=== PATIENT | male | born 1945 | race Caucasian/White ===

== ENCOUNTER 2024-04-11 14:54 | Inpatient (IN) | payer MEDICARE, OTHER, SELFPAY ==
[2024-04-11] VITALS (18 sets, daily range): BP systolic 128–207; BP diastolic 72–104; BMI 34.5
--- NOTE | 2024-04-11 12:51 | ED.GENMED ---
History of Present Illness
General
Chief Complaint: Chest Problem
Time Seen by Provider: 04/11/24 12:43
History of Present Illness
History of Present Illness:
HPI: Patient has multiple complaints:
1. High blood pressure with pressures that were noted to be high at [facility] 2 days ago, high blood pressure readings in the 160s to 180s at home; he last took lisinopril 10 mg/hydrochlorothiazide 12.5 mg last night
2. Left shoulder pain that is resolved which is nontraumatic�this occurred when the patient had his arm up on the [place] watching game last night
3. Family history of Brugada syndrome which patient was somewhat concerned about
4. Facial flushing and facial warmth last evening
5. Intermittently recurring indigestion and has had esophageal dilatation in the past
EXAM:
GENERAL: Well appearing in no distress, manual blood pressure is 190/100
HEENT: Moist oral mucosa
CARDIOVASCULAR: No murmurs, normal heart rate, regular rhythm, No chest wall tenderness
PULMONARY: No respiratory distress, breath sounds are clear and equal
ABDOMEN: Soft with no peritoneal signs, no tenderness
NEUROLOGIC: Excellent strength all extremities, no coordination deficits
PSYCHIATRIC: Appropriate mental status, normal insight and judgement
EXTREMITIES: Nontender, no edema, moves all extremities equally
SKIN: No rash, no lesions
TIME OF INITIAL ENCOUNTER: 1 PM
NUMBER AND COMPLEXITY OF PROBLEMS ADDRESSED AT THE ENCOUNTER
� Chronic conditions affecting care: High blood pressure
� Acute Exacerbation and/or Progression of Chronic Illness: This is an acute worsening of chronic high blood pressure
� Differential Diagnosis includes: Labile hypertension, poorly controlled high blood pressure, ACS very unlikely
AMOUNT AND/OR COMPLEXITY OF DATA TO BE REVIEWED AND ANALYZED
� I performed an independent evaluation of and my interpretation is:
EKG: Sinus 73, left axis deviation, PACs, LAFB with no old to compare
CT:
X-rays:
Laboratory Studies: White count 15.4, chemistries unremarkable, troponin 0.192
Other:
� Review of other/old records: The patient was seen here in the ED in 2021 with COVID-19; no old EKGs to compare
� Clinical information was obtained by an independent historian: None needed
� Prescriptions/Medications Considered but not given:
� Further testing considered but not performed: Consider chest x-ray given the leukocytosis however the patient has no pneumonia symptoms as well as clear lung sounds
RISK OF COMPLICATIONS AND/OR MORBIDITY OR MORTALITY OF PATIENT MANAGEMENT
� Social determinants of health affecting care: Lives at home
� Discussion with other providers: Hospitalist for admission at 2:25 PM; I notified Dr. Singh of the patient's findings
� Escalation of care including admission/observation vs risk of discharge considered: The patient's blood pressure on my manual reading was 190/100. Will give a dose of hydralazine. He last took lisinopril 10
mg/hydrochlorothiazide 12.5 mg last evening. He also takes vitamins but denies taking any niacin. The patient's troponin is elevated 0.192 with no old to compare. He does not have a rn gyn. He currently has no symptoms on reevaluation
however I am concerned about the troponin elevation as he did have some vague left shoulder discomfort last night and his blood pressures have been elevated more recently.
Past History
Past History
ED Past Medical History: HTN
ED Past Surgical History: None
Social History
Tobacco: Non-smoker
Alcohol: Occasional
Drug: None
Personal:
Living: with family
Phy Exam
Physical Exam
Physical Exam:
see hpi
Course
Orders/Labs/Results
Orders:
Orders
04/11/24 12:26
EKG [Electrocardiogram (*1)] Urgent
Reason for Study: Hypertension, Benign
EKG- Treatment ONCE
04/11/24 13:09
HydrALAZINE [Apresoline] 10 mg IV NOW STA
04/11/24 13:16
Basic Metabolic Panel Urgent
Complete Blood Count/With Diff Urgent
Troponin I Urgent
04/11/24 14:45
Admit/Transfer Patient As Directed
Co-Sign Provider:
Level of Care: Inpatient admission
Assign to:: IVU
Physician / Group: Hospitalist
Diagnosis: Chest pain
Reason for Hospitalization: .
Expected length of stay greater than two midnights?: Yes
ELOS- Estimated Length of Stay in days: 3
I certify the patient meets the requirements for IP care: Yes
PRN Pain Medication Management As Directed
May give lesser potent ordered pain med per pt: Yes
preference::
Protocol:: Medication orders for pain may be administered in a
manner that supports deferring to patient preference
when the pt is:
- Requesting an ordered lesser potent pain medication.
Least to most potent pain medications are defined
as: acetaminophen < NSAID < tramadol < opioids
(morphine, oxycodone, hydromorphone).
- Requesting a lesser dose of the same medication IF
ORDERED.
- Requesting a less intrusive route of administration
if both routes are prescribed by the provider (PO <
IV).
04/11/24 16:15
Troponin I Urgent
Abnormal Lab Results
04/11/24
13:16
WBC 15.4 H 10^3/uL
(4.8-10.8)
RBC 4.54 L 10^6/uL
(4.70-6.10)
MCH 32.6 H pg
(27.0-31.0)
Abs Immat Gran (auto) 0.2 H 10^3/uL
(0-0.05)
Absolute Neuts (auto) 12.7 H 10^3/uL
(1.4-6.5)
Absolute Monos (auto) 0.9 H 10^3/uL
(0.1-0.6)
Immature Gran % 1.1 H %
(0-0.5)
Neutrophils % 82.9 H %
(42.2-75.2)
Lymphocytes % 9.9 L %
(20.5-51.1)
BUN 21 H mg/dl
(9-20)
Troponin I 0.192 H* ng/ml
04/11/24 13:16
04/11/24 13:16
Vital Signs
Blood pressure: 190/100 (manual)
Initial and Last Documented VS:
Initial Vital Signs
Temp Pulse Resp BP Pulse Ox
98.3 F 78 18 179/100 100
04/11/24 12:24 04/11/24 12:24 04/11/24 12:24 04/11/24 12:24 04/11/24 12:24
Last Documented Vital Signs
Temp Pulse Resp BP Pulse Ox
98.3 F 70 13 176/99 100
04/11/24 12:24 04/11/24 15:15 04/11/24 15:15 04/11/24 15:00 04/11/24 12:24
*Critical Care Note
Total Time (30-74mins, 75-104mins- exclusive of procedures): Not Applicable
ED Attending Note
-
Portions of this chart may have been created with voice recognition software.� Occasional wrong word or��sound alike� substitutions may have occurred due to the inherent limitations of voice recognition software.
Discharge Plan
Departure
Patient Disposition: Admit
Date of Disposition: 04/11/24
Time of Disposition: 14:26
Presentation/result/management discussed w/ accepting MD/DO: Hospitalist
Discharge Problem:
Elevated troponin level
Interventions
Interventions:
*Risk Screen - Suicide Last Done: 04/11/24 13:30
*Neglect/Abuse Screening Last Done: 04/11/24 13:30
ED- Fall Risk Assessment Last Done: 04/11/24 13:29
ED- Cardiac Assessment Last Done: 04/11/24 13:29
ED- Pulmonary Assessment Last Done: 04/11/24 13:29
[2024-04-11] MEDS: APRESOLINE 10 MG IV (13:20)
[2024-04-11 13:29] LABS: % Basophils 0.1 % (0-2); % Eosinophils 0.1 % (0-6); % Immature Granulocytes 1.1 % (0-0.5); % Lymphocytes 9.9 % (20.5-51.1); % Monocytes 5.9 % (1.7-9.3); % Neutrophils 82.9 % (42.2-75.2); Absolute Immature Granulocytes 0.2 10^3/uL (0-0.05); Absolute Lymphocytes 1.5 10^3/uL (1.2-3.4); Absolute Monocytes 0.9 10^3/uL (0.1-0.6); Absolute Neutrophils 12.7 10^3/uL (1.4-6.5); Hematocrit 42.2 % (39.0-52.0); Hemoglobin 14.8 g/dL (13.0-18.0); Mean Corp Hgb Conc. 35.1 g/dL (33.0-37.0); Mean Corpuscular Hgb 32.6 pg (27.0-31.0); Mean Platelet Volume 9.4 fL (7.4-10.4); Nucleated Red Blood Cells % 0 % (-); Platelet Count 172 10^3/uL (130-400); Red Blood Cell Count 4.54 10^6/uL (4.70-6.10); Red Cell Dist. Width 13.3 % (11.5-14.5); White Blood Cell Count 15.4 10^3/uL (4.8-10.8)
[2024-04-11 13:46] LABS: Blood Urea Nitrogen 21 mg/dl (9-20); Calcium 9.3 mg/dl (8.4-10.2); Carbon Dioxide 24 mmol/L (22-30); Chloride 106 mmol/L (98-107); Glucose 93 mg/dl (70-99); Potassium 4.2 mmol/L (3.5-5.1); Sodium 142 mmol/L (135-145); eGFR > 60.00
[2024-04-11 14:01] LABS: Troponin I 0.192 ng/ml
--- NOTE | 2024-04-11 14:43 | HPS.HSE ---
Family Physician
-
Family Physician: Zeke Gupta
Chief Complaint
-
Uncontrolled hypertension
Left shoulder pain
History of Present Illness
This is 79 years old male presented with history of left shoulder pain that is resolved which is nontraumatic�this occurred when the patient had his arm up on the sofa watching game last night and also uncontrolled hypertension. His son brought him
to the hospital. Patient denied current chest pain, fever, sob. In ER, he was found to have troponin of 0.192. He was given Hydralazine for high blood pressure.
Medical History
Past Medical History
Past Medical History: Reports Other (HTN, back pain, GERD )
Past Surgical History: Reports Other (no recent major surgery )
Social History
Tobacco: Non-smoker
Alcohol: None
Drug: None
Personal:
Living: With Family
Employment: Retired
Family History
Family History: Other (CHF in his father )
Allergies / Home Medications
Allergies reflects when Allergies were last updated in [facility].
Home Medications with original date entered in [facility]
Allergy/Medication List:
Allergies
Allergy/AdvReac Type Severity Reaction Status Date / Time
amoxicillin Allergy Mild Rash Verified 11/25/21 09:33
Home Medications
lisinopril 10 mg-hydrochlorothiazide 12.5 mg tablet 1 tab PO QPM Blood Pressure 11/23/21
aspirin 81 mg tablet,delayed release 81 mg PO DAILYPRN PRN chest pains 04/11/24
coQ10 (ubiquinol) 100 mg capsule 100 mg PO DAILY Supplement 04/11/24
esomeprazole magnesium 40 mg capsule,delayed release (Nexium) 40 mg PO DAILY Gastrointestinal Issue 04/11/24
naproxen sodium 220 mg tablet (Aleve) 220 mg PO [id number] PRN mild pain 04/11/24
Review of Systems
-
History Source: Patient
A 12 point ROS was completed and negative except as noted: Yes
Constitutional: Denies Fever or Chills
EENT: Denies Sore Throat
Respiratory: Denies Cough
Cardiac: Denies Chest Pain
Abdomen/GI: Denies Abdominal Pain
: Denies Dysuria or Frequency
Musculoskeletal: Denies Joint Pain
Skin: Denies Itching
Neurological: Denies Numbness
Endocrine: Denies Temp Intolerance
Hematologic/Lymphatic: Denies Bruising
Psych: Denies Panic Disorder
Physical Exam
Vital Signs
Vital Signs
Temp Pulse Resp BP Pulse Ox
98.3 F 67 12 163/84 100
04/11/24 12:24 04/11/24 14:00 04/11/24 14:00 04/11/24 14:00 04/11/24 12:24
Physical Exam
General: No Apparent Distress and Comfortable
HEENT: Moist mucous membranes and Atraumatic
Respiratory: Clear
Cardiac: S1/S2, Regular Rhythm and Murmur
GI: Soft and Non Tender
Genito-urinary: No costovertebral tender
Musculoskeletal: No Clubbing, No Cyanosis and No Edema
Skin: Warm; No Jaundice
Neuro: AO x 3 and Nonfocal/grossly intact; No Slurred Speech or Tremors
Psych: Calm and Intact Judgment/Insight
Laboratory Results
-
04/11/24 13:16
04/11/24 13:16
Laboratory Results
Troponin I 0.192 ng/ml H* 04/11/24 13:16
Impression/Plan
-
79 years old male presented with uncontrolled hypertension and a brief episode of left upper chest/left shoulder discomfort with flushing
# Positive troponin, history of uncontrolled hypertension and brief episode of left upper chest/left shoulder discomfort with the flushing that happened last night while watching TV, hx of reflux
This story is not entirely conclusive for acute coronary syndrome. Patient has positive troponin ( only one resulted ) which can be also explained by uncontrolled hypertension.
Currently patient has no active chest pain. His systolic blood pressure high was around 190 upon admission.
Family history of heart disease, his father had congestive heart failure
We do not have previous EKG to compare but EKG on admission showed sinus rhythm with left anterior fascicular block(confirmed by cardiology).
Will admit the patient to IVU/telemetry floor
Order echocardiogram
Order serial troponin
Order chest x-ray
The patient will benefit from nitrate, Imdur
Aspirin as antiplatelet therapy
Check lipid panel
Control blood pressure
Appreciate cardiology input
# GERD
Takes Nexium in the past
# Hypertensive urgency
Patient received epidural steroid injection few days ago that might be contributing
Will continue with lisinopril and titrate the dose as needed
# Leukocytosis, likely reactive
No fevers. No respiratory symptoms
# DVT prophylaxis
# Chronic back pain, status post epidural injection
Total time spent to see the patient, examine the patient on the floor, review data and lab results, and discuss the treatment plan with the patient, ED doctor, redeye gunner and nursing staff around 75 minutes
--- NOTE | 2024-04-11 15:57 | CON.CAR ---
Addendum entered and electronically signed by Kiran Singh MD 04/11/24 17:40:
I saw and examined the patient.
The CHEMICAL LABORATORY ASSISTANT's note was reviewed and I agree with the note.
Echocardiogram with normal left ventricular function, moderate aortic stenosis with a peak gradient of 45 mm and a mean gradient of 28 mmHg. Moderate mitral regurgitation.
Original Note:
Consultation
Consultation Request
Date/Time Consultation Requested: 04/11/2024 at 15004/11/24 at 1500
Requesting Provider: Dr. Marte
Performing Provider: Dr. Singh
Reason for Consultation: Abnormal troponin
Medical History
-
History of Present Illness:
79-year-old male with a history of hypertension and GERD who presented to the ER due to issues with hypertension in addition he had 30-minute episode of shoulder discomfort last night. Patient has no prior cardiac history. He states that he was
having issues with back pain and also with some pain down his legs. He underwent epidural injection 2 days ago which improved the symptoms. Last night he was watching football and had his left arm raised and propped on something and he had some
shoulder discomfort that was also noted in his left upper chest. He thought it was related to the positioning symptoms did not particular get better or worse with change in position overall symptoms lasted for about 30 minutes and resolved. He
took evening medications and shortly after swallowing them felt some reflux and then vomited the pills he had no other GI symptoms following this. No shortness of breath palpitations or heart racing. Of note patient was hypertensive last night
with at least 1 recording of 200/100. Of note because of the procedure he had held his lisinopril and then did not take it until late last night. Today he was still hypertensive and had blood pressure recordings anywhere from a systolic of 1 65-1
87. Son recommended that he goes to the ER to evaluate the above issues. Currently without chest pain or shoulder pain ECG without ischemic changes.
Patient states that he has had a murmur in childhood he has not seen a principal quality engineer it sounds as if he had an echocardiogram before but is not clear on what the echocardiogram showed he is not aware of any heart valve problems
He has a family history of Brugada. Reportedly his daughter has Brugada.
Past medical history
Hypertension
GERD
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
Family history. Daughter with Brugada
Social History
Tobacco: Non-Smoker
Family History
Family History: Other (Daughter with Brugada)
Allergies / Home Medications
Allergy/AdvReac Type Severity Reaction Status Date / Time
amoxicillin Allergy Mild Rash Verified 11/25/21 09:33
�Medication �Instructions �Recorded �Confirmed �Type
lisinopril 10 1 tab PO QPM Blood Pressure 11/23/21 04/11/24 History
mg-hydrochlorothiazide 12.5 mg
tablet
aspirin 81 mg tablet,delayed 81 mg PO DAILYPRN PRN chest pains 04/11/24 04/11/24 History
release
coQ10 (ubiquinol) 100 mg capsule 100 mg PO DAILY Supplement 04/11/24 04/11/24 History
esomeprazole magnesium 40 mg 40 mg PO DAILY Gastrointestinal 04/11/24 04/11/24 History
capsule,delayed release (Nexium) Issue
naproxen sodium 220 mg tablet 220 mg PO [id number] PRN mild pain 04/11/24 04/11/24 History
(Aleve)
Review of Systems
-
All other systems: Negative unless noted
Physical Exam
Vital Signs
Temp Pulse Resp BP Pulse Ox
98.3 F 70 13 176/99 100
04/11/24 12:24 04/11/24 15:15 04/11/24 15:15 04/11/24 15:00 04/11/24 12:24
Lab Results
04/11/24 13:16
04/11/24 13:16
Troponin I 0.192 ng/ml H* 04/11/24 13:16
Physical Exam
General: Well Developed, Well Nourished and No Apparent Distress
HEENT: Normocephalic and Moist Mucous Membranes
Respiratory: Clear
Cardiac: Regular Rhythm (2/6 systolic murmur heard through the precordium.)
GI: Soft and Non Tender
Musculoskeletal: No Clubbing and No Cyanosis
Skin: Warm and Dry
Neuro: Awake and Alert
Hematologic/Lymphatic: No Lymphadenopathy
Psych: Calm
Impression / Plan
-
Abnormal troponin.
-Initial troponin 0.19. Exact etiology unclear. With elevation in troponin and 30 minutes of shoulder discomfort last night it is possible that his shoulder discomfort represented angina.. Severe hypertension also may contribute to elevation in
troponin. Patient currently chest pain-free and no ischemic ECG changes would proceed as follows
-Aspirin 81 mg a day
-Serial troponins with next troponin at 1615 as scheduled
-Additional treatment of hypertension
-Echocardiogram
.
Hypertension. Severe
-Continue lisinopril
-Add beta-addie
-Nitrates
-And can continue as needed hydralazine which had also already been administered in the ER
.
Murmur. Assessment with echo.
.
Back pain. Patient with recent epidural.
Data Reviewed
-
EKG: Report Reviewed by me
CT Scan: Report Reviewed by me
Medical Tests (Nuc Med, Echo etc): Report Reviewed by me
[2024-04-11] MEDS: TOPROL XL 25 MG PO (17:45)
[2024-04-11] MEDS: IMDUR (EXTENDED RELEASE) 30 MG PO (17:46)
--- NOTE | 2024-04-11 18:11 | PTCARENOTE ---
Received patient from ED with son in room. Pt is SR w BBB on the monitor, patient reports no chest pain at this time. BP is 184/92 at this time. 98% on room air. Pt oriented to room, call ruvalcaba within reach.
[2024-04-11] MEDS: ZESTRIL 10 MG PO (19:27)
[2024-04-11] MEDS: HEPARIN 5000 UNITS SC (19:28)
[2024-04-11 19:40] LABS: Troponin I 0.163 ng/ml
--- NOTE | 2024-04-11 20:27 | PTCARENOTE ---
Pt. received at change of shift. Pt. seen and assessed in room. Pt. AOx3 with no complaints of pain at this time. Troponins trending down. BP elevated 160s/100. 8pm lisinopril given. Plan of care explained to patient. Pt. verbalizes understanding.
Call ruvalcaba within reach. Continuing to monitor at this time.
--- NOTE | 2024-04-11 21:34 | PTCARENOTE ---
Pt. transported to Xray via tech for chest xray. No complications. Pt. transported back to room.
[2024-04-12] VITALS (9 sets, daily range): BP systolic 114–163; BP diastolic 71–86; BMI 34.3
[2024-04-12 03:10] LABS: Hematocrit 38.3 % (39.0-52.0); Hemoglobin 13.7 g/dL (13.0-18.0); Mean Corp Hgb Conc. 35.8 g/dL (33.0-37.0); Mean Corpuscular Hgb 31.9 pg (27.0-31.0); Mean Corpuscular Volume 89.3 fL (80.0-94.0); Mean Platelet Volume 9.5 fL (7.4-10.4); Platelet Count 201 10^3/uL (130-400); Red Blood Cell Count 4.29 10^6/uL (4.70-6.10); Red Cell Dist. Width 13.5 % (11.5-14.5); White Blood Cell Count 12.2 10^3/uL (4.8-10.8)
[2024-04-12 03:23] LABS: ALT (SGPT) 20 U/L (0-50); AST (SGOT) 25 U/L (17-59); Albumin 3.9 g/dl (3.5-5.0); Alkaline Phosphatase 60 U/L (38-126); Blood Urea Nitrogen 23 mg/dl (9-20); Carbon Dioxide 22 mmol/L (22-30); Chloride 105 mmol/L (98-107); Estimated Creatinine Clearance 68 ml/min; Glucose 92 mg/dl (70-99); HDL Cholesterol 28 mg/dl; LDL Cholesterol, Calculated 51 mg/dl; Sodium 140 mmol/L (135-145); Total Bilirubin 1.1 mg/dl (0.2-1.3); Total Cholesterol 148 mg/dl (50-199); Total Protein 6.1 g/dl (6.3-8.2); Triglyceride 347 mg/dl (10-149); Very Low Density Lipoprotein 69 mg/dl (0-30); eGFR > 60.00
[2024-04-12 03:35] LABS: Troponin I 0.125 ng/ml
--- NOTE | 2024-04-12 06:50 | W.PN.HOSP.TC ---
Today's Communication/Plan
-
Control BP
f/w cardiology recommendations
Assessment / Plan
Assessment / Plan
Physical Exam
General: No Apparent Distress and Comfortable
HEENT: Moist mucous membranes and Atraumatic
Respiratory: Clear
Cardiac: S1/S2, Regular Rhythm and Murmur
GI: Soft and Non Tender
Genito-urinary: No costovertebral tender
Musculoskeletal: No Clubbing, No Cyanosis and No Edema
Skin: Warm; No Jaundice
Neuro: AO x 3 and Nonfocal/grossly intact; No Slurred Speech or Tremors
Psych: Calm and Intact Judgment/Insight
79 years old male presented with uncontrolled hypertension and a brief episode of left upper chest/left shoulder discomfort with flushing
# Positive troponin, history of uncontrolled hypertension and brief episode of left upper chest/left shoulder discomfort with the flushing that happened last night while watching TV, hx of reflux
DDx include non ischemic myocardial injury due to high blood pressure Vs ischemic etiology
Troponin peaked at 0.19
No chest pain
c/w BB, Imdur, aspirin, Lisinopril
Echo showed LVEF 55-60% with no wall motion abnormalities
Will need Ischemic work up
Appreciate cardiology input
# Valvular heart disease
Echo showed Moderate aortic stenosis. Peak gradient 45 mmHg and a mean gradient 28 mmHg. Moderate mitral regurgitation
# GERD
Takes Nexium in the past
# Hypertensive urgency
Patient received epidural steroid injection few days ago that might be contributing
Better controlled BP this morning
# Leukocytosis, likely reactive, WBC is coming down
No fevers. No respiratory symptoms
# DVT prophylaxis
# Chronic back pain, status post epidural injection
Total time spent to see the patient, examine the patient on the floor, review data and lab results, and discuss the treatment plan with the patient, nursing staff around 55 minutes
Anticipated Discharge: Within 24 hours
Subjective/Interval History
-
Date of Service: April 12, 2024
No chest pain
No sob
Objective Data
-
Labs:
Laboratory Results
04/12/24
02:18
WBC 12.2 H
Hgb 13.7
Hct 38.3 L
Plt Count 201
Sodium 140
Potassium 4.0
Chloride 105
Carbon Dioxide 22
BUN 23 H
Creatinine 1.0
Glucose 92
Calcium 9.0
Total Bilirubin 1.1
AST 25
ALT 20
Alkaline Phosphatase 60
Vital Signs:
Vital Signs
Temp Pulse Resp BP Pulse Ox
97.7 F 64 16 131/83 96
04/12/24 02:21 04/12/24 02:30 04/12/24 02:21 04/12/24 02:21 04/12/24 02:21
[2024-04-12] MEDS: PROTONIX 40 MG PO (08:50)
[2024-04-12] MEDS: TOPROL XL 25 MG PO (08:50)
[2024-04-12] MEDS: IMDUR (EXTENDED RELEASE) 30 MG PO (08:50)
[2024-04-12] MEDS: ZESTRIL 10 MG PO ×2 (08:50→19:21)
[2024-04-12] MEDS: LOW STRENGTH ASPIRIN 81 MG PO (08:50)
[2024-04-12] MEDS: HEPARIN 5000 UNITS SC ×2 (08:50→19:22)
--- NOTE | 2024-04-12 12:16 | W.PN.CD ---
Today's Communication / Plan
-
Increase BB
Dr. Singh prefers stress jack or cath on Sunday
Impression / Plan
-
Shoulder pain with abnormal troponin, echo 04/11/2024: Normal LVEF, no LV wall motion changes
- DDx: NSTEMI or type II NC precipitated by severe HTN
- peak trop 0.192, the admit trop
- Dr Singh prefers pt stay for stress test or catheterization on Sunday
- Aspirin 81 mg a day, nitrates, bb. Will increase beta addie
- Plan for EKG in AM
Hypertension, severe, improving
- mild LVH on echo
Moderate aortic stenosis, mean 28 mmHg
Mild mitral regurgitation
Back pain
- recent epidural.
Lipids
- Not on statin: LDL 51, HDL 28, TG 347, Total 148
Obesity, BMI 34
Subjective:
No chest pain/shoulder pain
Physical Exam
Vital Signs/Labs
Vital Signs
Temp Pulse Resp BP Pulse Ox
97.9 F 70 20 150/71 96
04/12/24 11:18 04/12/24 08:50 04/12/24 11:18 04/12/24 08:50 04/12/24 11:18
04/11/24 04/12/24 04/13/24
06:59 06:59 06:59
Actual Weight 102.3 kg
04/12/24 02:18
04/12/24 02:18
Magnesium 2.0 mg/dl (1.6-2.3) 04/12/24 02:18
Triglycerides 347 mg/dl (10-149) H 04/12/24 02:18
LDL Cholesterol, Calc 51 mg/dl 04/12/24 02:18
VLDL Cholesterol, Calc 69 mg/dl (0-30) H 04/12/24 02:18
HDL Cholesterol 28 mg/dl 09/07/24 02:18
LAB Results
04/11/24 04/11/24 04/11/24
13:16 17:21 18:53
Troponin I 0.192 H* Cancelled 0.163 H*
04/12/24 04/12/24 04/12/24
02:18 02:18 07:00
Troponin I 0.125 H* Cancelled Cancelled
Physical Exam
Constitutional: No acute distress
EENT: Anicteric
Cardiovascular: Rhythm & rate is regular and Pedal edema is absent
Respiratory: Respiratory effort normal and Lungs clear to auscul.
GI: Soft and Distention absent
Neuro/Psych: Alert and Oriented
Data Reviewed
-
Date of Service: April 12, 2024
--- NOTE | 2024-04-12 15:52 | CHAP ---
Mr. Henry said he's doing okay, even though it's been hard to sleep at night. He has a strong spirit and a positive attitude. Emotional and spiritual support provided.
--- NOTE | 2024-04-12 17:39 | PTCARENOTE ---
pt continues to be sr on the monitor, hr in the 70s, vss. pt offers no complaints at this time. pt educated on plan of care and pt verbalized understanding. call ruvalcaba within reach.
--- NOTE | 2024-04-12 19:14 | PTCARENOTE ---
Pt. received at change of shift. Pt. AOx3, tele reading NSR. No complaints of chest pain. Plan of care explained to the patient. Pt. verbalizes understanding. Continuing to monitor the patient at this time.
[2024-04-12] MEDS: TOPROL XL 50 MG PO (19:21)
[2024-04-12] MEDS: MELATONIN 5 MG PO (22:05)
[2024-04-13] VITALS (7 sets, daily range): BP systolic 128–182; BP diastolic 79–91; BMI 34.3
[2024-04-13] MEDS: IMDUR (EXTENDED RELEASE) 30 MG PO (09:24)
[2024-04-13] MEDS: LOW STRENGTH ASPIRIN 81 MG PO (09:24)
[2024-04-13] MEDS: TOPROL XL 50 MG PO ×2 (09:24→19:47)
[2024-04-13] MEDS: PROTONIX 40 MG PO (09:24)
[2024-04-13] MEDS: HEPARIN 5000 UNITS SC ×2 (09:25→19:47)
[2024-04-13] MEDS: ZESTRIL 10 MG PO ×2 (09:25→19:46)
--- NOTE | 2024-04-13 11:05 | W.PN.HOSP.TC ---
Today's Communication/Plan
-
Cardiac testing in am
Add PRN Tylenol
Add Protonix
Discussed with patient and daughter, pt takes variety of vitamins, supplements at home- different brands. Recommend to hold for now, appropriate to take one type of multivitamins
Assessment / Plan
Assessment / Plan
Physical Exam
General: No Apparent Distress and Comfortable
HEENT: Moist mucous membranes and Atraumatic
Respiratory: Clear
Cardiac: S1/S2, Regular Rhythm and Murmur
GI: Soft and Non Tender
Genito-urinary: No costovertebral tender
Musculoskeletal: No Clubbing, No Cyanosis and No Edema
Skin: Warm; No Jaundice
Neuro: AO x 3 and Nonfocal/grossly intact; No Slurred Speech or Tremors
Psych: Calm and Intact Judgment/Insight
79 years old male presented with uncontrolled hypertension and a brief episode of left upper chest/left shoulder discomfort with flushing
# Positive troponin, history of uncontrolled hypertension and brief episode of left upper chest/left shoulder discomfort with the flushing that happened last night while watching TV, hx of reflux
DDx include non- ischemic myocardial injury due to high blood pressure Vs ischemic etiology
Troponin peaked at 0.19
No chest pain
c/w BB, Imdur, aspirin, Lisinopril
Echo showed LVEF 55-60% with no wall motion abnormalities
Will need Ischemic work up
Appreciate cardiology input
# Valvular heart disease
Echo showed Moderate aortic stenosis. Peak gradient 45 mmHg and a mean gradient 28 mmHg. Moderate mitral regurgitation
# GERD
Takes Nexium in the past
Will add Protonix in AM.
# Hypertensive urgency, resolved. Patient received epidural steroid injection few days ago that might have contributed.
Increased dose of Toprol XL to 50 mg BID.
Better controlled BP
Added PRN hydralazine
# Leukocytosis, likely reactive, WBC is coming down
No fevers. No respiratory symptoms
Repeat CBC in AM.
# DVT prophylaxis, on SQ Heparin.
# Chronic back pain, status post epidural injection
Add PRN Tylenol.
Total time spent to see the patient, examine the patient on the floor, review data and lab results, and discuss the treatment plan with the patient, family, nursing staff around 55 minutes
Anticipated Discharge: 24 - 48 hours
Subjective/Interval History
-
Date of Service: April 13, 2024
No chest pain
No sob
Objective Data
-
Vital Signs:
Vital Signs
Temp Pulse Resp BP Pulse Ox
97.8 F 69 18 182/91 98
04/13/24 09:17 04/13/24 09:30 04/13/24 09:17 04/13/24 09:24 04/13/24 09:17
I&O
04/12/24 04/13/24 04/14/24
06:59 06:59 06:59
Intake Total 630 / 630
Balance 630 / 630
--- NOTE | 2024-04-13 12:39 | W.PN.CD ---
Addendum entered and electronically signed by Mike Wiggins MD 04/14/24 07:20:
-
-
Will add or draw metanephrines given up/down severe HTN with assoc. symptoms. Pheo is rare but seems we should explore the possibility.
-
-
Original Note:
Today's Communication / Plan
-
Discussed wtih Dr. Singh => cath tomorrow
Reviewed with pt and he is agreeable
For HTN - After recovering form cath advancing RAAS-I and adding MRA makes sense
Impression / Plan
-
Shoulder pain with abnormal troponin, echo 04/11/2024: Normal LVEF, no LV wall motion changes
- DDx: NSTEMI or type II MN precipitated by severe HTN
- peak trop 0.192, the admit trop
- Dr Singh prefers pt stay for catheterization on Sunday
- Aspirin 81 mg a day, nitrates, bb. continue beta addie
- Plan for EKG in AM
Hypertension, severe, improving
- mild LVH on echo
- After recovering form cath advancing RAAS-I and adding MRA makes sense
Moderate aortic stenosis, mean 28 mmHg
Mild mitral regurgitation
Back pain
- recent epidural.
Lipids
- Not on statin: LDL 51, HDL 28, TG 347, Total 148
Obesity, BMI 34
Subjective:
No chest pain/shoulder pain
Physical Exam
Vital Signs/Labs
Vital Signs
Temp Pulse Resp BP Pulse Ox
98.7 F 69 18 182/91 98
04/13/24 11:23 04/13/24 09:30 04/13/24 11:23 04/13/24 09:24 04/13/24 11:23
04/12/24 04/13/24 04/14/24
06:59 06:59 06:59
Actual Weight 102.3 kg 102.4 kg
04/12/24 02:18
04/12/24 02:18
Magnesium 2.0 mg/dl (1.6-2.3) 04/12/24 02:18
Triglycerides 347 mg/dl (10-149) H 04/12/24 02:18
LDL Cholesterol, Calc 51 mg/dl 04/12/24 02:18
VLDL Cholesterol, Calc 69 mg/dl (0-30) H 04/12/24 02:18
HDL Cholesterol 28 mg/dl 04/12/24 02:18
LAB Results
04/11/24 04/11/24 04/11/24
13:16 17:21 18:53
Troponin I 0.192 H* Cancelled 0.163 H*
04/12/24 04/12/24 04/12/24
02:18 02:18 07:00
Troponin I 0.125 H* Cancelled Cancelled
Physical Exam
Constitutional: No acute distress
EENT: Anicteric
Cardiovascular: Rhythm & rate is regular and Pedal edema is absent
Respiratory: Respiratory effort normal and Lungs clear to auscul.
GI: Soft and Distention absent
Neuro/Psych: AO x 3
Data Reviewed
-
Date of Service: April 13, 2024
--- NOTE | 2024-04-13 17:20 | PTCARENOTE ---
Pt denies any discomfort, mainly resting in bed. SBP 180's this morning otherwise 120-130's. Telemetry shows sinus rhythm. Plan for cardiac cath on 04/14.
--- NOTE | 2024-04-13 20:00 | PTCARENOTE ---
Rec'd pt resting in bed, amb ad mundo w/o difficulty, denies pain, SR w/ BBB, + pulses, no edema, RA, lungs clear, sat 98, + bowel sounds, no bm, abdobese, soft, nontender, no n/v, voiding in bathroom
[2024-04-14] VITALS (16 sets, daily range): BP systolic 117–168; BP diastolic 67–94; BMI 33.6
--- NOTE | 2024-04-14 | PTCARENOTE ---
npo for cath 04/14
[2024-04-14 04:19] LABS: Hematocrit 41.6 % (39.0-52.0); Mean Corp Hgb Conc. 36.1 g/dL (33.0-37.0); Mean Corpuscular Hgb 31.8 pg (27.0-31.0); Mean Corpuscular Volume 88.3 fL (80.0-94.0); Mean Platelet Volume 9.3 fL (7.4-10.4); Platelet Count 175 10^3/uL (130-400); Red Blood Cell Count 4.71 10^6/uL (4.70-6.10); Red Cell Dist. Width 13.4 % (11.5-14.5); White Blood Cell Count 9.3 10^3/uL (4.8-10.8)
[2024-04-14 04:42] LABS: Blood Urea Nitrogen 23 mg/dl (9-20); Calcium 9.3 mg/dl (8.4-10.2); Carbon Dioxide 21 mmol/L (22-30); Chloride 105 mmol/L (98-107); Estimated Creatinine Clearance 68 ml/min; Glucose 104 mg/dl (70-99); Potassium 4.1 mmol/L (3.5-5.1); Sodium 141 mmol/L (135-145); eGFR > 60.00
[2024-04-14] MEDS: HEPARIN 5000 UNITS SC ×2 (07:34→19:55)
[2024-04-14] MEDS: PROTONIX 40 MG PO (07:34)
[2024-04-14] MEDS: TOPROL XL 50 MG PO (07:34)
[2024-04-14] MEDS: ZESTRIL 10 MG PO ×2 (07:34→19:55)
[2024-04-14] MEDS: IMDUR (EXTENDED RELEASE) 30 MG PO (07:34)
[2024-04-14] MEDS: LOW STRENGTH ASPIRIN 81 MG PO (07:35)
--- NOTE | 2024-04-14 09:04 | PTCARENOTE ---
Report called to the dairy and food laboratory assistant.
[2024-04-14 10:47] LABS: ACT-LR - POC 379 Seconds (116-155)
[2024-04-14 11:37] LABS: ACT-LR - POC > 397 Seconds (116-155)
--- NOTE | 2024-04-14 11:55 | W.PN.CD ---
Today's Communication / Plan
-
DAPT with aspirin and ticagrelor.
Change metoprolol to carvedilol.
Monitor BP, renal function.
Add icosapent ethyl 2g PO BID as an outpatient.
Outpatient observation of aortic valve stenosis given borderline criteria.
Impression / Plan
-
Impression/Plan: 79 y/o male with HLD, at least moderate and HTN admitted with hypertensive emergency and shoulder discomfort after injection and thus a confusing picture, but likely ACS.
#NSTEMI
-TTE 04/11/2024 shows normal LVEF, no LV wall motion changes.
-Peak trop 0.192.
-Cardiac catheterization today showed an under-appreciated 90% lesion in OM1, now s/p Medtronic [place] 3.0 x 26 SERAFIN (post dilated with a 3.0 NCB).
-DAPT with aspirin and ticagrelor.
-High dose, high potency statin.
-Continue isosorbide mononitrate.
-Change metoprolol to carvedilol.
#Hypertension
-Severe, improving but labile.
-Mild LVH on echo.
-Change metoprolol to carvedilol.
-He would benefit from MRA.
-Serum metanephrines ordered.
#Aortic stenosis
-Moderate/severe.
-Mean 28 mmHg on echo, 37 mmHg on cath pullback.
-Medical management for the time being and re-assess after revascularization. The is not critical.
#HLD
-Chronic, stable
-Not on an outpatient statin.
-Total cholesterol = 148, LDL = 51, HDL = 28 (!), Triglycerides = 347.
-High dose, high potency statin, but LDL is already at goal of < 55.
-Outpatient icosapent ethyl 2g PO BID.
#Mild mitral regurgitation
#Back pain s/p recent epidural
#Obesity, BMI 34
Subjective/Interval History:
No acute events.
No subjective complaints.
Cath today showed obstructive disease in OM1, now s/p successful (but technically challenging) PCI.
DATA:
TTE, 04/11/2024:
CONCLUSIONS
Normal left ventricular size and function.
LV ejection fraction is 55-60% .
Mild concentric left ventricular hypertrophy.
Moderate aortic stenosis. Peak gradient 45 mmHg and a mean gradient 28 mmHg.
Moderate mitral regurgitation
Mild mitral regurgitation
No prior study available for comparison.
Cardiac Catheterization/PCI, 04/14/2024:
CONCLUSIONS
1. Left dominant circulation with a 40% lesion in the mid LAD spanning the origin of D2, a 30% lesion in the distal vessel immediately before a 90 degree turn, a 30% lesion in the proximal nondominant RCA and a hazy, 70% lesion in the
ostial/proximal OM1 that culminates in a 90%, subtotal, shelflike lesion status post technically complicated though ultimately successful PCI (Medtronic [place] 3.0 x 26 SERAFIN, postdilated with a 3.0 NC balloon) with reduction in stenosis to 0%,
maintaining [place]-3 flow.
2. Mildly elevated filling pressures (LVEDP = 16 mmHg at 99.8 kg).
3. Moderate to severe aortic valve stenosis (mean gradient 36.47 mmHg).
Physical Exam
Vital Signs/Labs
Vital Signs
Temp Pulse Resp BP Pulse Ox
36.4 C 67 20 168/74 97
04/14/24 07:59 04/14/24 07:33 04/14/24 07:59 04/14/24 07:33 04/14/24 07:59
04/12/24 04/13/24 04/14/24
11:59 11:59 11:59
Actual Weight 102.3 kg 102.4 kg 100.2 kg
04/14/24 04:02
04/14/24 04:02
Magnesium 2.0 mg/dl (1.6-2.3) 04/12/24 02:18
Triglycerides 347 mg/dl (10-149) H 04/12/24 02:18
LDL Cholesterol, Calc 51 mg/dl 04/12/24 02:18
VLDL Cholesterol, Calc 69 mg/dl (0-30) H 04/12/24 02:18
HDL Cholesterol 28 mg/dl 04/12/24 02:18
LAB Results
04/11/24 04/11/24 04/11/24
13:16 17:21 18:53
Troponin I 0.192 H* Cancelled 0.163 H*
04/12/24 04/12/24 04/12/24
02:18 02:18 07:00
Troponin I 0.125 H* Cancelled Cancelled
Physical Exam
Constitutional: No acute distress and Comfortable
EENT: Anicteric and Moist mucous membranes
Cardiovascular: Rhythm & rate is regular, Pedal edema is absent, JVD pressure is normal, S1S2 is normal and Murmur/rub/gallop absent
Respiratory: Respiratory effort normal, Lungs clear to auscul., Wheeze Absent, Crackles Absent and Rhonchi Absent
GI: Soft, Distention absent, Flat, Non tender and Normal bowel sounds
Neuro/Psych: AO x 3
Other: Cath Site (Right radial access site is C/D/I.)
Data Reviewed
-
Date of Service: April 14, 2024
Medical Decision Making: Reviewed Test Results, Independent Historian Assessment, Test Interpretation and Review of Case with other Provider
EKG: Tracing Personally Visualized and interpreted and Report Reviewed by me
Echo: Tracing Personally Visualized and interpreted and Report Reviewed by me
X-Ray/CT/US/MRI/NUC/PET: Image Personally Visualized and interpreted and Report Reviewed by me
Medical Tests (PFT, Pathology etc): Image Personally Visualized and interpreted and Report Reviewed by me
Labs: Labs Reviewed by me
[2024-04-14 11:56] LABS: ACT-LR - POC 384 Seconds (116-155)
--- NOTE | 2024-04-14 12:07 | ITS.CL.ANGIO ---
Test Deskman - Angioplasty
Angioplasty
Procedure Report:
CARDIAC CATHETERIZATION REPORT
Date of Procedure: 04/14/2024
Referring: Mike Wiggins M.D.
INDICATION: Non-ST elevation myocardial infarction, at least moderate aortic valve stenosis, abnormal troponin.
PROCEDURE:
1. Left heart catheterization.
2. Coronary angiography.
3. Successful though technically challenging PCI of an underappreciated subtotal occlusion of OM1.
ACCESS:
6 [place] right radial artery.
CATHETERS:
1. 5 [place] JR4.
2. 5 [place] JL 3.5.
3. 6 [place] EBU 3.5 guiding catheter.
HEMODYNAMIC DATA
Weight (kg): 99.8
AO (s/d/x, mmHg): 136/78/103
LV (s/x mmHg): 165/16
AV gradient (x mmHg): 36.47
LEFT VENTRICULOGRAPHY: Not performed.
CORONARY ANGIOGRAPHY
Dominance: Left.
Left Main: Large size, bifurcating vessel. There is no coronary artery disease.
LAD: Normal size vessel giving rise to 2 significant diagonals. There is a 40% lesion in the mid vessel spanning the origin of D2. There is a 30% lesion in the distal vessel immediately before a 90 degree turn.
Ramus: Congenitally absent.
Circumflex: Large size, dominant vessel giving rise to 2 obtuse marginals before terminating as an LPDA. There is a hazy, 70% lesion in the ostial/proximal OM1 that culminates in a 90%, subtotal, shelflike lesion in the proximal OM1. There are
luminal irregularities in some of the other vessels.
RCA: Small size, nondominant vessel with an anterior origin that was nonselectively engaged. There is a 30% lesion in the proximal vessel.
INTERVENTION(S)
1. Successful PCI of the 70% / 90% ostial/proximal OM1 lesion (Medtronic [place] 3.0 x 26 SERAFIN, postdilated with a 3.0 NC balloon) with reduction in stenosis to 0%, maintaining [place]-3 flow.
Narrative:
The decision was made to proceed with percutaneous coronary intervention. The diagnostic catheter was removed over a wire and a 6Fr EBU 3.5 guiding catheter was advanced to the aortic root and seated in the left main coronary artery. Additional
heparin was given and a Power Turn Flex wire was advanced into the LAD for anchoring. A BMW wire was advanced into the circumflex artery. Once we had satisfactory position in the circumflex, the power turn flex wire was removed and a GuideLiner
was advanced over a 2.0 x 12 semicompliant balloon. With the GuideLiner in place, we were able to perform subselective engagement of just the circumflex, allowing us to direct the BMW wire into the first obtuse marginal. Unfortunately, the BMW
wire buckled when it reached the subtotal lesion. Initially, we attempted to use the balloon for support, however this led to prolapsing of the wire. The balloon was withdrawn and used in a wire pinning technique to advance a quick cross
microcatheter. The microcatheter was advanced into the first obtuse marginal and the BMW wire was removed. A power turn flex wire was advanced, but also had difficulty crossing the OM1 subtotal lesion. The power turn flex wire was withdrawn and a
whisper wire was advanced. The whisper wire was able to advance much further than the workhorse wire. The quick cross microcatheter was advanced more dance delete into the OM1. Unfortunately, after reaching the subtotal lesion, the whisper wire
would not track along the true lumen and appeared to be entering a medial dissection plane.
The whisper wire was withdrawn and a Fielder XT wire was advanced. Several attempts were made to cross this lesion with microcatheter support. Unfortunately these were also unsuccessful and the microcatheter was eventually pushed out of the obtuse
marginal entirely. At this time, the Fielder wire was withdrawn and found to be too badly deformed to be reused. Angiography showed that the artery was now essentially closed, likely due to focal dissection. The whisper wire was readvanced and
was able to enter the true lumen of the OM1, again allowing us to bring the microcatheter into the obtuse marginal. The whisper wire was withdrawn and a new Fielder XT wire with a PROFESSOR OF SOCIOLOGY tip was advanced through the microcatheter. Using micro
movements, I was able to traverse the subtotal occlusion and enter the distal first obtuse marginal. I advanced the microcatheter into the distal obtuse marginal and removed the wire. Intraluminal position was confirmed on gentle injection through
the microcatheter. A long BMW wire was advanced through the microcatheter and into the distal vessel to serve as a workhorse wire. The quick cross microcatheter was withdrawn.
The entire OM1 lesion was predilated with a 1.5 x 12 semicompliant balloon, followed by a 2.0 x 12 semi-compliant balloon to 12 catherine. During the final inflation of the 2.0 x 12 semicompliant balloon, the balloon was used as an anchor to allow
advancement of the GuideLiner for improved support and stent delivery. The semi-compliant balloon was removed and a Medtronic Bath [place] 3.0 x 26 drug-eluting stent was advanced. Meticulous care was taken while positioning the stent, allowing
the stent edge to cover the true ostium of the vessel while simultaneously covering the more distal disease. The stent was deployed at 12 atmospheres. The stent balloon was removed. A 3.0 x 20 noncompliant balloon was advanced into the stent and
the stent was postdilated to 14 atmospheres.
Initial post deployment angiography showed an excellent stent expansion with some stepdown towards the distal edge of the stent. There was the possibility of stent extension, though I was suspicious for vessel spasm. Nitroglycerin 100 mcg was
given intracoronary with resolution of the distal edge stepdown.
Angiography was performed in orthogonal views, confirming good stent expansion and an excellent angiographic result. The coronary wire was withdrawn and the guide was disengaged from the artery. The catheter was removed over a standard J-wire.
Closure Device: Vascular band.
Radiation (mGy): 1579.49
DAP (cm2.Gy): 97.8174
Fluoroscopy time (minutes): 37.8
Sedation time (minutes): 121
CONCLUSIONS
1. Left dominant circulation with a 40% lesion in the mid LAD spanning the origin of D2, a 30% lesion in the distal vessel immediately before a 90 degree turn, a 30% lesion in the proximal nondominant RCA and a hazy, 70% lesion in the
ostial/proximal OM1 that culminates in a 90%, subtotal, shelflike lesion status post technically complicated though ultimately successful PCI (Medtronic [place] 3.0 x 26 SERAFIN, postdilated with a 3.0 NC balloon) with reduction in stenosis to 0%,
maintaining [place]-3 flow.
2. Mildly elevated filling pressures (LVEDP = 16 mmHg at 99.8 kg).
3. Moderate to severe aortic valve stenosis (mean gradient 36.47 mmHg).
RECOMMENDATIONS:
1. Expectant management after cardiac catheterization via right radial approach.
2. Limited weight bearing on the right wrist for one week.
3. Dual antiplatelet therapy with aspirin and ticagrelor for at least 12 months, followed by aspirin indefinitely.
4. Aggressive secondary prevention including high-dose, high potency statin. He will likely need icosapent ethyl for triglyceride control.
5. Outpatient evaluation of moderate to severe aortic valve stenosis after PCI.
6. Referral to cardiac rehab.
Copy to: Mike Wiggins M.D., Zeke Gupta M.D.
Jose Armas DO, FACC, FACP
--- NOTE | 2024-04-14 13:00 | PTCARENOTE ---
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 Patient voided post procedure. VSS, call ruvalcaba in reach
[2024-04-14] MEDS: TYLENOL 1000 MG PO (13:08)
--- NOTE | 2024-04-14 15:23 | W.PN.HOSP.TC ---
Today's Communication/Plan
-
.
Assessment / Plan
Assessment / Plan
NAD, resting comfortably in bed
Scleral anicteric
Moist mucous membranes
No JVD
CTA bilateral
Normal S1-S2 no murmurs
Soft nontender nondistended bowel sounds active
No peripheral pitting edema
Moves extremities spontaneously
AAOx3
79 years old male presented with uncontrolled hypertension and a brief episode of left upper chest/left shoulder discomfort with flushing
# Positive troponin, history of uncontrolled hypertension and brief episode of left upper chest/left shoulder discomfort with the flushing that happened last night while watching TV, hx of reflux
NSTEMI.
Continue beta-addie Imdur aspirin lisinopril
EF 55 to 60%
LHC with PCI that was successful PCI of the 70% / 90% ostial/proximal OM1 lesion (Medtronic [place] 3.0 x 26 SERAFIN, postdilated with a 3.0 NC balloon) with reduction in stenosis to 0%, maintaining [place]-3 flow.
Appreciate cardiology
ASA, Birlinta, [place] Statin
Moderate aortic stenosis. And mitral regurgitation outpatient cardiology follow
GERD continue ppi
Hypertensive urgency, resolved. Patient received epidural steroid injection few days ago that might have contributed.
Increased dose of Toprol XL to 50 mg BID.
Better controlled BP
Added PRN hydralazine
Anticipated Discharge: Within 24 hours
Subjective/Interval History
-
Date of Service: April 14, 2024
Seen and examined. No new complaints. No acute overnight events.
Objective Data
-
Labs:
Laboratory Results
04/14/24
04:02
WBC 9.3
Hgb 15.0
Hct 41.6
Plt Count 175
Sodium 141
Potassium 4.1
Chloride 105
Carbon Dioxide 21 L
BUN 23 H
Creatinine 1.0
Glucose 104 H
Calcium 9.3
Vital Signs:
Vital Signs
Temp Pulse Resp BP Pulse Ox
97.5 F 65 20 155/88 96
04/14/24 12:19 04/14/24 13:00 04/14/24 12:19 04/14/24 13:00 04/14/24 12:30
I&O
04/13/24 04/14/24 04/15/24
06:59 06:59 06:59
Intake Total 630 / 630 100 / 100
Balance 630 / 630 100 / 100
--- NOTE | 2024-04-14 15:54 | CM ---
Chart reviewed. 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 Plan is for the patient to return home. CM to follow
--- NOTE | 2024-04-14 15:56 | CM ---
Addendum entered by Yesica Garcia RN 04/14/24 16:15:
Spoke to Bruna at the [facility], authorization will take a week. Patient has a free 30 day coupon to use with his [employer] to start.
Original Note:
Pricing on Brilinta through the [employer], ID# [id number], is $433 the patient needs to meet their $545 deductible. After that the patient will pay 23% of cost. Patient is also being seen at the [place], Dr. Diaz. Cath report and progress
note faxed over to [facility] the [facility]. Reviewed the information with the patient. Placed a free 30 day coupon in the patient's red discharge folder.
[2024-04-14] MEDS: LIPITOR 40 MG PO (17:35)
[2024-04-14] MEDS: COREG 12.5 MG PO (19:55)
[2024-04-14] MEDS: BRILINTA 90 MG PO (19:55)
--- NOTE | 2024-04-14 21:43 | PTCARENOTE ---
received patient at the change of shift. AAOx3. denies any cp/sob. R radial site CDI, + pulse. SR with a BBB on [id number]. bp stable. reviewed new medications with patient and importance. educated patient to inform RN with any changes.
patient requesting something to help him sleep tonight. received melatonin on Sunday night. 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 order placed for melatonin, see oct.
[2024-04-14] MEDS: MELATONIN 3 MG PO (22:26)
[2024-04-15] VITALS (8 sets, daily range): BP systolic 99–147; BP diastolic 50–86
[2024-04-15 04:49] LABS: Hematocrit 40.7 % (39.0-52.0); Hemoglobin 14.6 g/dL (13.0-18.0); Mean Corp Hgb Conc. 35.9 g/dL (33.0-37.0); Mean Corpuscular Volume 89.3 fL (80.0-94.0); Mean Platelet Volume 9.3 fL (7.4-10.4); Platelet Count 188 10^3/uL (130-400); Red Blood Cell Count 4.56 10^6/uL (4.70-6.10); Red Cell Dist. Width 13.5 % (11.5-14.5); White Blood Cell Count 10.7 10^3/uL (4.8-10.8)
[2024-04-15 05:12] LABS: Blood Urea Nitrogen 21 mg/dl (9-20); Calcium 9.5 mg/dl (8.4-10.2); Carbon Dioxide 22 mmol/L (22-30); Chloride 104 mmol/L (98-107); Estimated Creatinine Clearance 61 ml/min; Glucose 106 mg/dl (70-99); Sodium 138 mmol/L (135-145); eGFR > 60.00
--- NOTE | 2024-04-15 08:24 | W.CARD.POSTP ---
Post PCI Follow Up
Procedure
Procedure/Date: 04/14/24- PCI of the 70-90% ostial/proximal OM1 lesion w/1 SIRENA
Subjective: Denies cp/palps/dyspnea
radial cath site without pain
Site
Site: Radial: Right and No ht/bleeding, distal pulses palpable
Tele / EKG
NSR 70s, no vt/arrhythmia
Labs
04/15/24 04:19
04/15/24 04:19
Magnesium 2.0 mg/dl (1.6-2.3) 04/12/24 02:18
Triglycerides 347 mg/dl (10-149) H 04/12/24 02:18
LDL Cholesterol, Calc 51 mg/dl 04/12/24 02:18
VLDL Cholesterol, Calc 69 mg/dl (0-30) H 04/12/24 02:18
HDL Cholesterol 28 mg/dl 04/12/24 02:18
Laboratory Tests
04/11/24 04/11/24 04/12/24
13:16 18:53 02:18
Troponin I 0.192 H* 0.163 H* 0.125 H*
DAPT Medication
DAPT Medication: Aspirin 81mg daily and Tricagrelor 90 mg BID
Case Management checking briseno: Yes
Plan
NSTEMI w/peak troponin 0.192
s/p OM1 ptca/sirena
Brilinta cost- see CM note- will get first month free and then through [facility]- rx sent to pharmacy
New start- lipitor 40mg/d, coreg 12.5mg BID, lisinopril 10mg BID- BP tolerating 120-140s
stop HCTZ
cardiac rehab consult
cardiology followup- 05/05 @10AM w/Smita Syed TREATING INSPECTOR
[2024-04-15] MEDS: IMDUR (EXTENDED RELEASE) 30 MG PO (08:34)
[2024-04-15] MEDS: LOW STRENGTH ASPIRIN 81 MG PO (08:34)
[2024-04-15] MEDS: BRILINTA 90 MG PO ×2 (08:35→17:49)
[2024-04-15] MEDS: PROTONIX 40 MG PO (08:36)
[2024-04-15] MEDS: COREG 12.5 MG PO ×2 (08:36→17:49)
[2024-04-15] MEDS: ZESTRIL 10 MG PO ×2 (08:36→17:49)
[2024-04-15] MEDS: HEPARIN 5000 UNITS SC (08:36)
--- NOTE | 2024-04-15 10:36 | PTCARENOTE ---
Rec'd pt at change of shift on TELE monitor in NSR with BBB, VSS, and AAAO*3. Pt verbalized understanding of ASA and Plavix medication regimen. Pt denies any pain and resting in bed with call ruvalcaba in reach.
--- NOTE | 2024-04-15 11:10 | W.PN.CD ---
Today's Communication / Plan
-
Start spironolactone 25 mg daily.
BMP in one week.
Outpatient aortic stenosis evaluation.
Discharge planning.
Impression / Plan
-
Impression/Plan: 79 y/o male with HLD, at least moderate and HTN admitted with hypertensive emergency and shoulder discomfort after injection and thus a confusing picture, but likely ACS.
#NSTEMI
-TTE 04/11/2024 shows normal LVEF, no LV wall motion changes.
-Peak trop 0.192.
-Cardiac catheterization today showed an under-appreciated 90% lesion in OM1, now s/p Medtronic Michie Lynn 3.0 x 26 SERAFIN (post dilated with a 3.0 NCB).
-DAPT with aspirin and ticagrelor.
-High dose, high potency statin.
-Continue isosorbide mononitrate and carvedilol.
#Hypertension
-Severe, improving but labile.
-Mild LVH on echo.
-Change metoprolol to carvedilol.
-Add spironolactone 25 mg daily.
-BMP in one week.
#Aortic stenosis
-Moderate/severe.
-Mean 28 mmHg on echo, 37 mmHg on cath pullback.
-Outpatient reassessment after revascularization. The is not critical.
#HLD
-Chronic, stable
-Not on an outpatient statin.
-Total cholesterol = 148, LDL = 51, HDL = 28 (!), Triglycerides = 347.
-High dose, high potency statin, but LDL is already at goal of < 55.
-Outpatient icosapent ethyl 2g PO BID.
#Mild mitral regurgitation
#Back pain s/p recent epidural
#Obesity, BMI 34
Subjective/Interval History:
BP is more controlled, consistently 140/70's.
No acute events.
No subjective complaints.
DATA:
TTE, 04/11/2024:
CONCLUSIONS
Normal left ventricular size and function.
LV ejection fraction is 55-60% .
Mild concentric left ventricular hypertrophy.
Moderate aortic stenosis. Peak gradient 45 mmHg and a mean gradient 28 mmHg.
Moderate mitral regurgitation
Mild mitral regurgitation
No prior study available for comparison.
Cardiac Catheterization/PCI, 04/14/2024:
CONCLUSIONS
1. Left dominant circulation with a 40% lesion in the mid LAD spanning the origin of D2, a 30% lesion in the distal vessel immediately before a 90 degree turn, a 30% lesion in the proximal nondominant RCA and a hazy, 70% lesion in the
ostial/proximal OM1 that culminates in a 90%, subtotal, shelflike lesion status post technically complicated though ultimately successful PCI (Medtronic Michie Lynn 3.0 x 26 SERAFIN, postdilated with a 3.0 NC balloon) with reduction in stenosis to 0%,
maintaining [place]-3 flow.
2. Mildly elevated filling pressures (LVEDP = 16 mmHg at 99.8 kg).
3. Moderate to severe aortic valve stenosis (mean gradient 36.47 mmHg).
Physical Exam
Vital Signs/Labs
Vital Signs
Temp Pulse Resp BP Pulse Ox
36.7 C 69 18 142/79 100
04/15/24 07:56 04/15/24 08:36 04/15/24 07:56 04/15/24 08:36 04/15/24 09:57
04/13/24 04/14/24 04/15/24
11:59 11:59 11:59
Actual Weight 102.4 kg 100.2 kg
04/15/24 04:19
04/15/24 04:19
Magnesium 2.0 mg/dl (1.6-2.3) 04/12/24 02:18
Triglycerides 347 mg/dl (10-149) H 04/12/24 02:18
LDL Cholesterol, Calc 51 mg/dl 04/12/24 02:18
VLDL Cholesterol, Calc 69 mg/dl (0-30) H 04/12/24 02:18
HDL Cholesterol 28 mg/dl 04/12/24 02:18
Physical Exam
Constitutional: No acute distress and Comfortable
EENT: Anicteric and Moist mucous membranes
Cardiovascular: Rhythm & rate is regular, Pedal edema is absent, JVD pressure is normal, Systolic murmur present and S1S2 is normal
Respiratory: Respiratory effort normal, Lungs clear to auscul., Wheeze Absent, Crackles Absent and Rhonchi Absent
GI: Soft, Distention absent, Flat, Non tender and Normal bowel sounds
Neuro/Psych: AO x 3
Other: Cath Site (Right radial access site is C/D/I.)
Data Reviewed
-
Date of Service: April 15, 2024
Medical Decision Making: Reviewed Test Results, Independent Historian Assessment and Test Interpretation
EKG: Tracing Personally Visualized and interpreted and Report Reviewed by me
Echo: Tracing Personally Visualized and interpreted and Report Reviewed by me
X-Ray/CT/US/MRI/NUC/PET: Image Personally Visualized and interpreted and Report Reviewed by me
Medical Tests (PFT, Pathology etc): Image Personally Visualized and interpreted, Report Reviewed by me, Discussed with Nurse, Discussed with Patient and Discussed with Family
Labs: Labs Reviewed by me
Old Records: Reviewed
--- NOTE | 2024-04-15 11:25 | CM ---
Chart reviewed. 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 Plan is for the patient to return home. CM to follow
[2024-04-15] MEDS: ALDACTONE 25 MG PO (14:14)
--- NOTE | 2024-04-15 17:25 | W.PN.HOSP.TC ---
Today's Communication/Plan
-
dc today
Assessment / Plan
Assessment / Plan
79 years old male presented with uncontrolled hypertension and a brief episode of left upper chest/left shoulder discomfort with flushing
# Positive troponin, history of uncontrolled hypertension and brief episode of left upper chest/left shoulder discomfort with the flushing that happened last night while watching TV, hx of reflux
NSTEMI.
Continue beta-addie Imdur aspirin lisinopril
EF 55 to 60%
[facility] with PCI that was successful PCI of the 70% / 90% ostial/proximal OM1 lesion (Medtronic Francisco Tabiona 3.0 x 26 SERAFIN, postdilated with a 3.0 NC balloon) with reduction in stenosis to 0%, maintaining [place]-3 flow.
Appreciate cardiology
ASA, Birlinta, [place] Statin
Spironolactone added as per cardio
Moderate aortic stenosis. And mitral regurgitation outpatient cardiology follow
GERD continue ppi
Hypertensive urgency, resolved. Patient received epidural steroid injection few days ago that might have contributed.
stopped Toprol XL and changed to Coreg 12.5mg bid
Better controlled BP
pt feels well and has been cleared by cardio for dc
will dc now
More than 30 minutes spent in discharge including
Final examination of the patient
Summarizing hospital stay
Instructions for continuing care to all relevant caregivers
Preparation of discharge records, prescriptions, and referral forms
Total time spent (in minutes): 45
Anticipated Discharge: Today
Subjective/Interval History
-
Date of Service: April 15, 2024
Feels well, no chest pain
Objective Data
-
Vital Signs:
Vital Signs
Temp Pulse Resp BP Pulse Ox
98.4 F 64 16 114/66 97
04/15/24 16:53 04/15/24 16:53 04/15/24 16:53 04/15/24 16:53 04/15/24 16:53
I&O
04/14/24 04/15/24 04/16/24
06:59 06:59 06:59
Intake Total 100 / 100 500 / 500 240 / 240
Balance 100 / 100 500 / 500 240 / 240
Review of Systems
-
History Source: Patient and Coordinated Provider
Constitutional: Reports No Symptoms; Denies Fever
Respiratory: Reports No Symptoms; Denies Cough or Trouble Breathing
Cardiac: Reports No Symptoms; Denies Chest Pain
Abdomen/GI: Reports No Symptoms
Physical Exam
-
General: Well Developed, Well Nourished and No Apparent Distress
HEENT: Normocephalic, Atraumatic and Moist Mucous Membranes
Respiratory: Clear to Auscultation; Negative Wheezes, Rales or Rhonchi
Cardiac: Regular Rhythm and S1/S2
GI: Soft, Nontender and Nondistended
Musculoskeletal: No Clubbing, No Cyanosis and No Edema
Neuro: Awake, Alert and Oriented
[2024-04-15] MEDS: LIPITOR 40 MG PO (17:49)
--- NOTE | 2024-04-15 17:54 | W.DS.TRANS ---
DC Summary - Tube Balancer
-
Discharge Instructions:
Discharge Diagnosis/Procedures NSTEMI, s/p angioplasty and stent to Obtuse
Marginal artery
Diet Low Sodium
Activity No strenuous activity
Driving Restrictions Not until seen by your Dr
Bathing Restrictions None
Blood Work BMP, CBC
Other Services Cardiac Rehab
Instructions:
Stand-Alone Forms: DC Instructions- Cath/EP Lab
Changes to Home Medications: Yes
Discharge Medications:
DC Medications w/original date entered in [facility]
lisinopril 10 mg-hydrochlorothiazide 12.5 mg tablet 1 tab PO QPM Blood Pressure 11/23/21
coQ10 (ubiquinol) 100 mg capsule 100 mg PO DAILY Supplement 04/11/24
esomeprazole magnesium 40 mg capsule,delayed release (Nexium) 40 mg PO DAILY Gastrointestinal Issue 04/11/24
aspirin 81 mg chewable tablet 81 mg PO DAILY #90 tabs 04/14/24
ticagrelor 90 mg tablet (Brilinta) 90 mg PO BID #30 tabs 04/14/24
atorvastatin 40 mg tablet 40 mg PO DAILY #90 tabs 04/15/24
carvedilol 12.5 mg tablet 12.5 mg PO BID #60 tabs 04/15/24
isosorbide mononitrate 30 mg tablet,extended release 24 hr 30 mg PO DAILY #30 tabs 04/15/24
spironolactone 25 mg tablet 25 mg PO DAILY #30 tabs 04/15/24
Home Medication Changes
aspirin is daily
Brilinta has been added
Toprol has been stopped and Coreg replaces
Imdur has been added
Spironolactone has been added
Pending Results: No
--- NOTE | 2024-04-15 18:17 | PTCARENOTE ---
D/C instructions given to patient and son, both verbalized understanding. INT D/C'd, telemetry D/C'd. personal belongings packed and sent home with patient. D/C to home via wc accompanied by staff.
== END 2024-04-15 18:34 | disposition home or self-care (01) | DRG 322 ==
LOC: IVU 14:54
PROVIDERS: Internal Medicine Cardiovascular Disease; Nurse Practitioner; ADMITTING PHYSICIAN Internal Medicine; ATTENDING PHYSICIAN Internal Medicine; EMERGENCY PHYSICIAN Emergency Medicine; FAMILY PHYSICIAN Family Medicine; OTHER PHYSICIAN Internal Medicine Cardiovascular Disease
PROC: B2111ZZ Fluoroscopy of Multiple Coronary Arteries using Low Osmolar Contrast (ICD-10-PCS; 2024-04-14)
PROC: 027034Z Dilation of Coronary Artery, One Artery with Drug-eluting Intraluminal Device, Percutaneous Approach (ICD-10-PCS; 2024-04-14)
PROC: 4A023N7 Measurement of Cardiac Sampling and Pressure, Left Heart, Percutaneous Approach (ICD-10-PCS; 2024-04-14)
DX: I21.4 Non-ST elevation (NSTEMI) myocardial infarction (principal); I16.0 Hypertensive urgency; I10 Essential (primary) hypertension; E66.9 Obesity, unspecified; Z68.34 Body mass index [BMI] 34.0-34.9, adult; I08.0 Rheumatic disorders of both mitral and aortic valves; I25.10 Atherosclerotic heart disease of native coronary artery without angina pectoris; E78.5 Hyperlipidemia, unspecified; K21.9 Gastro-esophageal reflux disease without esophagitis; G89.29 Other chronic pain; M54.9 Dorsalgia, unspecified; D72.829 Elevated white blood cell count, unspecified; Z79.899 Other long term (current) drug therapy; Z82.49 Family history of ischemic heart disease and other diseases of the circulatory system; Z88.0 Allergy status to penicillin
CPT/HCPCS: 71046; 80048; 80053; 80061; 83735; 83835; 84484; 85025; 85027; 93005; 93306; 93458; 96374; 99285; C1725; C1769; C1874; C1894; C9600; Q9967

== ENCOUNTER 2024-04-24 16:16 | Outpatient (RCR) | payer MEDICARE, OTHER, SELFPAY | END 2024-04-24 23:59 | disposition home or self-care (01) | LOC: CRHB 16:16 | PROVIDERS: ATTENDING PHYSICIAN Internal Medicine Cardiovascular Disease | DX: I25.10 Atherosclerotic heart disease of native coronary artery without angina pectoris (principal); Z95.5 Presence of coronary angioplasty implant and graft; I35.0 Nonrheumatic aortic (valve) stenosis; I25.2 Old myocardial infarction | CPT/HCPCS: G0422 ==

== ENCOUNTER → 2024-06-25 13:42 | Outpatient (REF) | payer MEDICARE, OTHER, SELFPAY | LOC: RAD 13:42 | PROVIDERS: ATTENDING PHYSICIAN Nurse Practitioner; FAMILY PHYSICIAN Family Medicine | DX: M79.604 Pain in right leg (principal); M79.605 Pain in left leg | CPT/HCPCS: 93922; 93925 ==

== ENCOUNTER → 2024-09-10 08:17 | Outpatient (REF) | payer MEDICARE, OTHER, SELFPAY | LOC: HWRCS 08:17 | PROVIDERS: ATTENDING PHYSICIAN Internal Medicine Cardiovascular Disease; FAMILY PHYSICIAN Family Medicine | DX: I35.0 Nonrheumatic aortic (valve) stenosis (principal) | CPT/HCPCS: 93306 ==